=== PATIENT | female | born 1950 | race Caucasian/White ===

== ENCOUNTER 2017-07-21 11:47 | Emergency (ER) | payer OTHER ==
[~2017-07-21] VITALS: Ht 167.6 cm; Wt 95.0 kg
[2017-07-21 12:03] VITALS: BP 131/77; PULSE 67; RESP 22; TEMP 97.7; O2SAT 99
[2017-07-21] MEDS ORDERED: BP MED (12:07)
[2017-07-21] MEDS ORDERED: MORPHINE SULFATE 2 MG/ML INJ IV PUSH ONE ×2 (12:15)
--- NOTE | 2017-07-21 12:54 | RADRPT ---
EXAM DATE/TIME: 07/21/2017 12:32 [facility] COMPARISON: No previous studies available for comparison. INDICATIONS : Left Shoulder Pain MEDICAL HISTORY : None. SURGICAL HISTORY : None. ENCOUNTER: Initial ACUITY: 1 day PAIN SCORE: 10/10 LOCATION: Left Shoulder FINDINGS: 2 views left shoulder. Anterior inferior dislocation of the humeral head at the glenohumeral joint. N o evidence of fracture. CONCLUSION: Anterior humeral head dislocation. Ck Abraham MD on July 21, 2017 at 12:50 Board Certified Radiologist. This report was verified electronically.
[2017-07-21] MEDS ORDERED: ETOMIDATE 20 MG/10 ML VIAL IV PUSH ONE (13:15)
[2017-07-21 13:31] VITALS: O2SAT 94
--- NOTE | 2017-07-21 13:39 | PD ---
Data Data Last Documented VS Vital Signs Date Time Temp Pulse Resp B/P (MAP) Pulse Ox O2 Delivery O2 Flow Rate FiO2 07/21/17 16:33 07/21/17 13:31 94 3.00 07/21/17 12:03 97.7 67 22 Room Air Orders Orders Iv Access Insert/Monitor (07/21/17 12:13) Morphine Inj (Morphine Inj) (07/21/17 12:15) Morphine Inj (Morphine Inj) (07/21/17 12:15) Shoulder, Limited(2vws) (07/21/17 ) Etomidate Inj (Amidate Inj) (07/21/17 13:15) Shoulder, Limited(2vws) (07/21/17 ) Spine, Lumbar - Ltd (Ap & Lat) (07/21/17 ) Sling And Swathe (07/21/17 ) Ketorolac Inj (Toradol Inj) (07/21/17 15:15) Cyclobenzaprine (Flexeril) (07/21/17 15:15) Ed Discharge Order (07/21/17 15:57) [facility] Supervised Visit with RAGHU: No Narrative Course Was asked by Dr. Manzano to perform procedural sedation on this patient for shoulder reduction. After discussed informed consent with this patient since as well as the risk benefits competitions and alternatives for procedural sedation including hypertension apnea need for intubation patient agreed for procedural sedation. I also discussed with her risks benefits competitions and alternatives of shoulder reduction including fracture need for surgery muscular or nerve damage or bone damage. She agreed to the reduction as well. Patient was successfully reduced by Dr. Manzano under my sedation. Further management by Dr. Manzano. Procedures Procedure Narrative After the risks and benefits were discussed the following procedure was performed: MODERATE SEDATION: The patient was placed on a court monitor and pulse oximetry and capnography monitoring. An ambu bag and suction was immediately available at bedside. The patient was monitored by the nurse. Oxygen saturation , heart rate and blood pressure were monitored. Procedural sedation was acheived using etomidate 10 mg. The patient was observed until awake and alert. Procedural Sedation time in attendance was 10 minutes. Scripts Hydrocodone-Acetaminophen ([place]) 5 Mg-325 Mg Tab 1 TAB PO Q6H Y for PAIN, #10 TAB 0 Refills Prov: Felicity Manzano MD 07/21/17 Carlos Caban MD Jul 21, 2017 13:39
--- NOTE | 2017-07-21 14:12 | RADRPT ---
EXAM DATE/TIME: 07/21/2017 13:45 [facility] COMPARISON: SHOULDER LEFT LTD (2VWS), July 21, 2017, 12:32. INDICATIONS : Post reduction. MEDICAL HISTORY : None. SURGICAL HISTORY : None. ENCOUNTER: Initial ACUITY: 1 day PAIN SCORE: Non-responsive. LOCATION: Left shoulder. FINDINGS: Two view examination of the left shoulder demonstrates no evidence of fracture or dislocation. The g lenohumeral and acromioclavicular joints are maintained. Bony mineralization is normal. The previous ly noted shoulder dislocation has been reduced. CONCLUSION: Reduction of the previous noted anterior shoulder dislocation with no evidence of fra cture. Rian Rockwell MD on July 21, 2017 at 14:08 Board Certified Radiologist. This report was verified electronically.
[2017-07-21] MEDS ORDERED: LOSA100T PO (14:29)
[2017-07-21] MEDS ORDERED: KETOROLAC TROMETHAMINE 30 MG/ML (IVP) VIAL IV PUSH ONE (15:15)
[2017-07-21] MEDS ORDERED: CYCLOBENZAPRINE HCL 10 MG TAB PO ONE (15:15)
--- NOTE | 2017-07-21 15:24 | RADRPT ---
EXAM DATE/TIME: 07/21/2017 14:35 [facility] COMPARISON: No previous studies available for comparison. INDICATIONS : Lower back pain post fall. MEDICAL HISTORY : None. SURGICAL HISTORY : None. ENCOUNTER: Initial ACUITY: 1 day PAIN SCORE: 8/10 LOCATION: Bilateral lumbar spine. FINDINGS: Two view examination was performed. There are five non-rib bearing vertebral bodies. The vertebral bodies are in normal alignment without evidence of subluxation or scoliosis. Mild degenerative disc c hanges are present greatest at the L3-4 level. There is a minimal grade 1 anterospondylolisthesis of L3 for several millimeters. There degenerative changes involving the facet joints. The pedicles are i ntact. There is mild osteopenia.. No fracture is identified. There is a minimal scoliosis. CONCLUSION: 1. No acute fracture. 2. Mild degenerative change greatest at L3-4. 3. Minimal grade 1 anterospondylolisthesis of L3 on L4 which appears chronic and due to degenerative change. 4. Osteopenia and minimal scoliosis. Rian Rockwell MD on July 21, 2017 at 15:20 Board Certified Radiologist. This report was verified electronically.
[2017-07-21] MEDS ORDERED: NORC5TAB PO (15:56)
--- NOTE | 2017-07-21 15:56 | PD ---
HPI Chief Complaint: Injury Time Seen by Provider: 12:13 Travel History International Travel<30 days: No Contact w/Intl Traveler<30days: No Traveled to known affect area: No History of Present Illness HPI Patient is a 66-year-old female who comes in after a fall today. She says that she was struggling with a luggage carrier somehow she tripped and fell and twisted her back. She says she landed on her arm, and now has pain to her shoulder. She denies hitting her head or any loss of consciousness. She denies any dizziness, chest pain, shortness of breath. She says she was in her normal state of health prior to the event. She has had previous rotator cuff surgery on the left shoulder. Any movement makes her pain worse. Nothing seems to make the pain better. PFSH Past Medical History Hypertension: Yes Medical other: Yes (POSSIBLE RA) ?: Not Past Surgical History Appendectomy: Yes Section: Yes Tonsillectomy: Yes Social History Alcohol Use: Yes Tobacco Use: No Substance Use: No Allergies-Medications (Allergen,Severity, Reaction): Coded Allergies: Sulfa (Sulfonamide Antibiotics) (Verified Allergy, Unknown, 07/21/17) Reported Meds & Prescriptions Reported Meds & Active Scripts Active [place] (Hydrocodone-Acetaminophen) 5 Mg-325 Mg Tab 1 Tab PO Q6H PRN Reported Losartan (Losartan Potassium) 100 Mg Tab 100 Mg PO DAILY Review of Systems Except as stated in HPI: all other systems reviewed are Neg General / Constitutional: No: Fever, Chills HENT: No: Headaches, Lightheadedness Cardiovascular: No: Chest Pain or Discomfort Respiratory: No: Shortness of Breath Gastrointestinal: No: Nausea, Vomiting Musculoskeletal: Positive: Pain Skin: No Rash, No Change in Pigmentation Neurologic: No: Weakness, Dizziness, Sensory Disturbance Physical Exam Narrative GENERAL: Awake and alert, in no acute distress. SKIN: Focused skin assessment warm/dry. No wounds. HEAD: Atraumatic. Normocephalic. EYES: Pupils equal and round. No scleral icterus. No injection or drainage. ENT: Mucous membranes pink and moist. NECK: Trachea midline. No JVD. No cervical spine tenderness. CARDIOVASCULAR: Regular rate and rhythm. No murmur appreciated. RESPIRATORY: No accessory muscle use. Clear to auscultation. Breath sounds equal bilaterally. MUSCULOSKELETAL: No clubbing. No cyanosis. No edema. Obvious deformity of the left shoulder. Radial pulse intact. NEUROLOGICAL: Awake and alert. No obvious cranial nerve deficits. Motor grossly within normal limits. Normal speech. PSYCHIATRIC: Appropriate mood and affect; insight and judgment normal. Data Data Last Documented VS Vital Signs Date Time Temp Pulse Resp B/P (MAP) Pulse Ox O2 Delivery O2 Flow Rate FiO2 07/21/17 16:33 07/21/17 13:31 94 3.00 07/21/17 12:03 97.7 67 22 Room Air Orders Orders Iv Access Insert/Monitor (07/21/17 12:13) Morphine Inj (Morphine Inj) (07/21/17 12:15) Morphine Inj (Morphine Inj) (07/21/17 12:15) Shoulder, Limited(2vws) (07/21/17 ) Etomidate Inj (Amidate Inj) (07/21/17 13:15) Shoulder, Limited(2vws) (07/21/17 ) Spine, Lumbar - Ltd (Ap & Lat) (07/21/17 ) Sling And Swathe (07/21/17 ) Ketorolac Inj (Toradol Inj) (07/21/17 15:15) Cyclobenzaprine (Flexeril) (07/21/17 15:15) Ed Discharge Order (07/21/17 15:57) [facility] Medical Decision Making Medical Screen Exam Complete: Yes Emergency Medical Condition: Yes Medical Record Reviewed: Yes Differential Diagnosis shoulder dislocation vs fracture vs muscle strain Narrative Course Patient is a 66 year old female who comes in complaining of pain to her shoulder and lower back. Exam shows obvious dislocation of the left shoulder. IV established. XR confirms anterior dislocation, no fracture. Reduction performed and patient placed in a sling. Lumbar spine fracture shows no acute abnormalities. Patient given morphine, toradol, Flexeril. Discharged in a sling, advised to follow up with orthopedics. Advised to return to the ED as needed for any worsening symptoms. Procedures Procedure Narrative Patient sedated for the procedure. Consents were obtained. Shoulder was reduced using traction countertraction. Radial pulses present before and after the reduction was performed. Patient placed in a sling and swath. She tolerated the procedure well. Diagnosis Primary Impression: Shoulder dislocation Qualified Codes: S43.005A - Unspecified dislocation of left shoulder joint, initial encounter Referrals: Sridhar Colmenares MD call for appointment Patient Instructions: General Instructions, Shoulder Dislocation (ED) Additional Instructions: Wear sling until you see orthopedics. Take pain medicine as needed. Return to the ED as needed for any worsening symptoms. Scripts Hydrocodone-Acetaminophen ([place]) 5 Mg-325 Mg Tab 1 TAB PO Q6H Y for PAIN, #10 TAB 0 Refills Prov: Felicity Manzano MD 07/21/17 Disposition: 01 DISCHARGE HOME Condition: Stable Felicity Manzano MD Jul 21, 2017 15:56
== END 2017-07-21 16:53 | disposition home or self-care (01) ==
LOC: NEPE 11:47
DX: S43.015A Anterior dislocation of left humerus, initial encounter (principal); M51.36 Other intervertebral disc degeneration, lumbar region; M41.9 Scoliosis, unspecified; I10 Essential (primary) hypertension; W01.0XXA Fall on same level from slipping, tripping and stumbling without subsequent striking against object, initial encounter; Z88.2 Allergy status to sulfonamides; Z79.899 Other long term (current) drug therapy
CPT/HCPCS: 23650; 72100; 73030; 96374; 96375; 99285; J1885; J2270; 29240